=== PATIENT | male | born 1960 | race Caucasian/White ===

== ENCOUNTER 2023-04-18 10:30 | Outpatient (CLI) | payer OTHER, SELFPAY ==
[2023-04-18 18:50] LABS: Alanine Aminotransferase 27 U/L (6-50); Albumin Level 4.5 g/dL (3.5-5.1); Alkaline Phosphatase 53 U/L (38-126); Anion Gap 6 mmol/L (8-16); Aspartate Amino Transferase 38 U/L (17-59); Bilirubin,Total 0.7 mg/dL (0.2-1.3); Blood Urea Nitrogen 19 mg/dL (9-20); Calcium 9.1 mg/dL (8.4-10.2); Carbon Dioxide 31 mmol/L (22-30); Chloride 102 mmol/L (98-107); Cholesterol 186 mg/dL (0-200); Estimated Glomerular Filt Rate > 60; Glucose 96 mg/dL (65-110); HDL Direct 56 mg/dL; Potassium 4.3 mmol/L (3.4-5.0); Sodium 139 mmol/L (137-145); Triglycerides 78 mg/dL (<150)
[2023-04-18 19:01] LABS: LDL Cholesterol Direct 100 mg/dL
[2023-04-18 19:19] LABS: Prostate Specific Antigen 0.6 ng/mL (< OR = 4.0)
== END 2023-04-18 10:31 | disposition home or self-care (01) ==
LOC: ANHGOSHLAB 10:31
PROVIDERS: PCP Internal Medicine Rheumatology; Visit Provider Family Medicine
DX: E78.5 Hyperlipidemia, unspecified (principal); Z12.5 Encounter for screening for malignant neoplasm of prostate
CPT/HCPCS: 36415; 80053; 80061; 84153; G0103

== ENCOUNTER 2023-08-10 02:08 | Day surgery (SDC) | payer OTHER, SELFPAY ==
[2023-07-31 13:55] VITALS: BMI 23.9
[2023-08-10 06:23] VITALS: BP 123/81; PULSE 66; RESP 16; TEMP 35.9; O2SAT 99
[2023-08-10] MEDS: LACTATED RINGERS 1,000 ML 150 ML IV CONT (06:35)
--- NOTE | 2023-08-10 07:27 | P.PNAN_ITS ---
Anes - Initial Pre Proc Eval Procedure: Operation Date: 08/10/23 07:30 Proposed Procedures p Colonoscopy - Eloy Bahena MD Date/Time: 08/10/23 07:27 Surgeon: Eloy Bahena MD Pre Op Diagnosis: hx colon polyps Patient Data Age: 62 Gender: M Height: 1.83 m Weight: 83.3 kg Last Vital Signs Temp 96.7 F L 08/10/23 06:23 Pulse 66 08/10/23 06:23 Resp 16 08/10/23 06:23 BP 123/81 08/10/23 06:23 Pulse Ox 99 08/10/23 06:23 O2 Del Method Room Air 08/10/23 06:23 Allergies Allergy/AdvReac Type Severity Reaction Status Date / Time No Known Allergies Allergy Verified 08/10/23 06:20 Home Medications Medication Instructions Recorded Confirmed Type losartan 50 mg tablet 50 mg PO DAILY 04/18/23 08/10/23 History Patient hx anesthesia problems: other (states prolonged awakening) Family hx anesthesia problems: none Results Review: All pre-operative results and documents have been reviewed as part of the pre- operative evaluation. [facility] Past Medical History Medical History (Updated 04/19/23 @ 08:31 by Sohail Malave MD) Heart disease Paced rhythm on remediation bioanalytics consultant Social History Social History (Updated 04/18/23 @ 09:46 by Hayde Lucas MA) Smoking packs per day: 0 Smoking cigarettes per day: 0.0 Smoking status: Never smoker Second hand tobacco smoke exposure: No Alcohol intake: never Substance use: never Substance use type: does not use Lack of Transportation: No Lack of Food: Never True Current Housing: I Have Housing Concerned About Future Housing: No Difficulty Paying Gas/Electric Bills: No Difficulty Paying for Meds: No Currently Unemployed: No Education: Master's Degree or Higher Difficulty w/ Childcare or Family Care: No Living arrangements: with family Spiritual care concerns: No Anes - Eval Final PreProcedure Day of Procedure 08/10/23 07:27 Patient weight: normal Heart: regular rate and rhythm Lungs: clear to auscultation Airway: Mallampati scale class II Neurological: alert and oriented Last oral intake: >/= 8 hours ASA classification: III Emergent: no Anesthetic plan: proceed Anesthesia type and monitoring: general GIVS and standard monitoring Results Review: All pre-operative results and documents have been reviewed as part of the pre- operative evaluation. Informed Consent: The patient's anesthetic plan and its attendant risks and benefits were discussed with the patient/family/POA. Questions were solicited and answers provided to the satisfaction of the patient/family/POA.
--- NOTE | 2023-08-10 07:33 | PM.HPGS ---
History of Present Illness History of Present Illness Consent: Risks, benefits, and alternatives have been discussed and questions answered. Patient agrees to proceed with procedure. Chief complaint: hx colon polyps Narrative: Phillip Montero is a 62 year old male with colon polyp about 6-7 years ago Review of Systems Constitutional: Constitutional: Denies headache(s) and Denies weakness Eyes: Eyes: Denies blurry vision ENT: Reports Normal hearing present, Denies headache(s) and Denies neck pain Cardiovascular: Cardiovascular: Denies chest pain and Denies dyspnea Respiratory: Respiratory: Denies dyspnea Gastrointestinal: Gastrointestinal: Reports no additional gastrointestinal complaints Genitourinary: Genitourinary: Denies dysuria Musculoskeletal: Musculoskeletal: Denies neck pain Integumentary/Breasts: Skin/Breast: Denies dry skin Neurologic: Reports Normal hearing present, Denies headache(s) and Denies weakness Psychiatric: Psychiatric: Denies anxiety Endocrine: Endocrine: Denies change in body appearance Hematologic/Lymphatic: Hematologic/Lymphatic: Denies easy bleeding Allergic/Immunologic: Allergic/Immunologic: Denies urticaria PMFSH Past Medical History Medical History (Updated 04/19/23 @ 08:31 by Sohail Malave MD) Heart disease Paced rhythm on quality assurance monitor Social History Social History (Updated 04/18/23 @ 09:46 by Hayde Lucas MA) Smoking packs per day: 0 Smoking cigarettes per day: 0.0 Smoking status: Never smoker Second hand tobacco smoke exposure: No Alcohol intake: never Substance use: never Substance use type: does not use Lack of Transportation: No Lack of Food: Never True Current Housing: I Have Housing Concerned About Future Housing: No Difficulty Paying Gas/Electric Bills: No Difficulty Paying for Meds: No Currently Unemployed: No Education: Master's Degree or Higher Difficulty w/ Childcare or Family Care: No Living arrangements: with family Spiritual care concerns: No Meds Home Medications and Allergies Home Medications Medication Instructions Recorded Confirmed Type losartan 50 mg tablet 50 mg PO DAILY 04/18/23 08/10/23 History Allergies Allergy/AdvReac Type Severity Reaction Status Date / Time No Known Allergies Allergy Verified 08/10/23 06:20 Vital Signs Vital Signs - 24 hr 08/10/23 06:23 Temperature 96.7 F L Pulse Rate 66 Respiratory Rate 16 Blood Pressure 123/81 Pulse Oximetry 99 Oxygen Delivery Room Air Exam Const: General: comfortable and no acute distress HENMT: Face/Nose/Sinus: Normal nares present Eyes: General: appearance normal, both eyes and all related structures Neck: Neck: no JVD Resp: Auscultation: clear to auscultation bilaterally Cardio: Rate: regular rate Rhythm: regular rhythm GI: Inspection: non-distended GI Palp: Yes Soft to palpation Skin: General skin exam: normal color Neuro: General: gait normal Speech: normal speech Extrem: General: normal to inspection Psych: Mental Status: mental status grossly normal Assessment and Plan Assessment and plan (1) Colon cancer screening: Code(s): Z12.11 - Encounter for screening for malignant neoplasm of colon Status: Acute Assessment and Plan: colonoscopy
[2023-08-10 07:49] VITALS: BP 81/51; PULSE 57; RESP 20; O2SAT 100
[2023-08-10 07:59] VITALS: BP 92/60; PULSE 52; RESP 21; O2SAT 99
[2023-08-10 08:09] VITALS: BP 103/73; PULSE 52; RESP 16; O2SAT 99
== END 2023-08-10 08:23 | disposition home or self-care (01) ==
PROVIDERS: PCP Family Medicine; Visit Provider Internal Medicine Gastroenterology
PROC: 0DJD8ZZ Inspection of Lower Intestinal Tract, Via Natural or Artificial Opening Endoscopic (ICD-10-PCS; CPT 45378; principal; 2023-08-10 07:30)
DX: Z12.11 Encounter for screening for malignant neoplasm of colon (principal); K57.30 Diverticulosis of large intestine without perforation or abscess without bleeding; K64.8 Other hemorrhoids; I51.9 Heart disease, unspecified; Z95.0 Presence of cardiac pacemaker; Z86.010 Personal history of colon polyps
CPT/HCPCS: 45378; J2704; J7120

== ENCOUNTER 2025-01-13 15:42 | Outpatient (CLI) | payer OTHER, SELFPAY ==
--- OUTSIDE RECORDS SUMMARY | 2025-01-13 17:09 | XMS_ITS | Clinical Summary ---
Author Organization [facility] Address [address] [place] [address] Care Team Providers Care Supervisor [employer] Name Role Phone Sohail Malave MD Primary Care Provider [phone] Alexandre Cooper MD Unavailable [phone] Allergies No known active allergies Medications aspirin 81 mg enteric coated tablet Take 1 tablet (81 mg total) by mouth daily 30 tablet 11 09/04/2024 5 Active rosuvastatin (CRESTOR) 20 mg tablet Take 1 tablet (20 mg total) by mouth daily 30 tablet 11 09/04/2024 5 Active metoprolol XL (TOPROL-XL) 25 mg extended release tablet Take 1 tablet (25 mg total) by mouth daily 30 tablet 11 09/04/2024 5 Active losartan (COZAAR) 50 mg tablet Take 1 tablet (50 mg total) by mouth daily 90 tablet 3 11/19/2024 Active Active Problems Problem Noted Date Diagnosed Date Essential hypertension 05/15/2023 Assessment & Plan (07/06/2023 10:19 AM CDT): Well controlled. Continue same therapy. Continue diet and exercise. Apical variant hypertrophic cardiomyopathy 08/26 Assessment & Plan (07/06/2023 10:17 AM CDT): Stable, apical hypertrophic cardiomyopathy well compensated. I made no change in his excellent medical regimen today. I asked him to follow up with me annually, or sooner if needed. I again advised him to continue to diet and exercise regularly. Assessment & Plan (04/07/2022 9:25 AM CDT): Stable, well compensated. He has had recent lightheadedness. I recommended an echocardiogram to re-evaluate left ventricular and valvular function, and further recommendations will await these results. I made no change in his excellent medical regimen today. Tentatively, asked him to follow up with me annually, or sooner if needed, pending the results of the echocardiogram. I again advised him to continue to diet and exercise regularly. Blood pressure is high today, with no previous history of hypertension. I asked him to monitor his blood pressure carefully at home, and to report if elevated. Assessment & Plan (02/24/2021 9:39 AM CDT): Stable, well compensated and asymptomatic. I made no change in his excellent medical regimen today. I asked him to follow up with me annually, or sooner if needed. I again advised him to continue to diet and exercise regularly. Assessment & Plan (02/26/2020 9:21 AM CDT): Stable, well compensated and asymptomatic except for occasional orthostatic lightheadedness. I advised him to remain very well hydrated. Continue same therapy. Assessment & Plan (02/13/2019 9:19 AM CDT): Stable, asymptomatic. He remains extremely well compensated. Continue same therapy. Assessment & Plan (08/26/2018 5:22 PM TOWER HELPER): The patient appears to have apical hypertrophy on a recent echocardiogram. He has long been known to have deep T-wave inversions on his surface ECG. There is no evidence of obstruction, and patient has no limitation in his ability to exert himself. There is an association between the apical subtype of hypertrophic cardiomyopathy and ventricular arrhythmia. No ventricular tachycardia has been recorded on the patient's device log, and a narrow complex tachycardia that was recorded is highly unlikely to represent ventricular tachycardia. For now, we will plan on following the patient's arrhythmia burden via his pacemaker. I will also make a point of stimulating his ventricle to determine if ventricular tachycardia is inducible at the time of his EP study. Paroxysmal atrial fibrillation 08/26/2018 Assessment & Plan (07/06/2023 10:19 AM CDT): Stable, very brief PAF on device check only, with extremely low burden. Continue same therapy. Assessment & Plan (04/07/2022 9:26 AM CDT): Stable, extremely brief PAF on pacemaker check only. Continue same therapy. Assessment & Plan (02/24/2021 9:40 AM CDT): Stable, no recent PAF on pacemaker checks. Continue same therapy. Assessment & Plan (02/26/2020 9:20 AM CDT): Stable, brief PAF only noted on prior pacemaker checks, with no significant burden noted on today's pacemaker check. Continue same therapy. Assessment & Plan (02/13/2019 9:18 AM CDT): Stable, brief PAF only. His pacemaker check today will be reviewed, and further recommendations forthcoming then. Assessment & Plan (08/26/2018 5:20 PM TOWER HELPER): The patient was also recently found to have device-detected atrial fibrillation. This episode was not symptomatic and lasted only 25 min. For now, we will continue to monitor the patient's arrhythmia burden via his device. The patient has a [id number] score of 0 (annualized risk of stroke approximately 0%). The patient will continue on aspirin, and we will re-evaluate the need for anticoagulation in the future. Paroxysmal SVT (supraventricular tachycardia) Assessment & Plan (07/06/2023 10:18 AM CDT): Stable, without recurrence status post SVT ablation. Continue same therapy. Assessment & Plan (04/07/2022 9:25 AM CDT): Stable status post SVT ablation without recurrence. Continue same therapy. Assessment & Plan (02/24/2021 9:39 AM CDT): Stable, without recurrence status post SVT ablation. Continue same therapy. Assessment & Plan (02/26/2020 9:19 AM CDT): Stable status post SVT ablation without recurrence. I made no change in his excellent medical regimen today. I asked him to follow up with me annually, or sooner if needed. Assessment & Plan (02/13/2019 9:18 AM CDT): Stable, maintaining sinus rhythm status post SVT ablation. I made no change in his medical regimen today. His pacemaker check today will be reviewed, and further recommendations forthcoming then. I asked him to follow up with me annually, or sooner if needed. Assessment & Plan (08/26/2018 5:19 PM TOWER HELPER): The the patient has device-detected supraventricular tachycardia. This appears to have been associated with his episode of near-syncope. The arrhythmia as intracardiac characteristics included a 1:1 A:V relationship the, with a far field electrogram demonstrating narrow complex. The differential diagnosis includes atrial tachycardia/flutter, as well as AVNRT/AVRT. We discussed options for management, and I recommended that the patient undergo EP study with ablation of the tachycardia mechanism. I explained the risks and benefits, and the patient would like to proceed. Assessment & Plan (07/23/2018 10:36 AM CDT): Stable, but he has had recent exertional presyncope, reportedly with associated marked tachycardia. His pacemaker will be checked today, and further recommendations forthcoming then. I recommended an echocardiogram to re-evaluate left ventricular and valvular function. Further recommendations will await these results. Tentatively, I asked him to follow up with me annually, or sooner if needed, pending the results of the above studies. 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 I asked him to follow up with electrophysiology. Syncope and collapse 07/23/2018 Assessment & Plan (07/06/2023 10:18 AM CDT): Stable, without recurrence status post pacemaker. Continue same therapy. Assessment & Plan (04/07/2022 9:26 AM CDT): Stable, history of syncope likely related to SVT in the setting of hypertrophic cardiomyopathy, without recurrence status post pacemaker and SVT ablation. Continue same therapy. Assessment & Plan (02/24/2021 9:40 AM CDT): Stable, without recurrence status post SVT ablation. Continue same therapy. Assessment & Plan (02/26/2020 9:21 AM CDT): Stable, without recent episode. Continue same therapy. Assessment & Plan (02/13/2019 9:18 AM CDT): Stable, without recurrence. Continue same therapy. Assessment & Plan (07/23/2018 10:10 AM CDT): As above, he has had recurrent presyncope once associated with exertion. I recommended an echo and stress echo, and further recommendations will await these results. Sinoatrial node dysfunction 12/17/2017 Assessment & Plan (07/06/2023 10:18 AM CDT): Stable status post pacemaker. Continue follow-up in the device Clinic. Assessment & Plan (04/07/2022 9:25 AM CDT): Stable status post pacemaker. Continue follow-up in the device Clinic. Assessment & Plan (02/24/2021 9:39 AM CDT): Stable status post pacemaker. Continue follow-up in the device Clinic. Assessment & Plan (02/26/2020 9:19 AM CDT): Stable status post pacemaker. Continue follow-up in the device Clinic. Assessment & Plan (02/13/2019 9:18 AM CDT): Stable status post pacemaker. Continue follow-up in the device clinic. Assessment & Plan (07/23/2018 10:10 AM CDT): As above, his pacemaker will be checked today, and further recommendations forthcoming then. Continue follow-up in the device clinic. Assessment & Plan (12/18/2017 2:26 PM TOWER HELPER): Stable status post pacemaker with normal function. I made no change in his medical regimen today. I asked him to follow up with me annually, or sooner if needed. He will continue follow-up in the device clinic as well. Cardiac pacemaker in situ 10/01/2017 Overview (02/03/2018): Medtronic DDD Advisa MRI pacemaker implanted on 06-28-16 for SSS. Usama Palafox-Jim card Assessment & Plan (08/26/2018 5:27 PM TOWER HELPER): The patient's device was interrogated and found to be functioning appropriately. No substantial changes to programming were made. The patient is enrolled in [facility], and we will continue to follow with remote monitoring when possible, and in-office device checks when necessary. Inguinal pain 09/25/2013 Arthralgia of hip 03/27/2013 Resolved Problems Problem Noted Date Diagnosed Date Resolved Date SVT (supraventricular tachycardia) 08/22/2018 02/25/2020 Overview (08/22/2018): Added automatically from request for surgery [id number] Encounters Date Type Department Care Team Description 10/27/2024 6:15 PM TOWER HELPER Ancillary Procedure [facility] [address] [place] [id number] Cardiac pacemaker in situ (Primary Dx); SSS (sick sinus syndrome) (HCC) from Last 3 Months Surgical History Surgery Date Site/Laterality Comments INSERT / REPLACE / REMOVE PACEMAKER 10/15/2015 - 016 TONSILLECTOMY childhood Medical History Medical History Date Comments Cardiac pacemaker in situ 10/01/2017 Medtro rosemary DDD Advisa MRI pacemaker implanted on 06-28-16 for SSS. Usama Palafox SSS (sick sinus syndrome) (HCC) Paroxysmal SVT (supraventric ular tachycardia) Ventricular tachycardia (HCC) Supraventricular tachycardia Atrial fibrillation (HCC) Hypertension Hypertrophic cardiomyopathy (HCC) Family History Medical History Relation Name Comments Heart disease Mother Samara Montero Other Mother Samara Montero Pacemaker; Other Other No family histo ry of Coronary artery disease, premature; Relation Name Status Comments Mother Samara Montero Other Social History Tobacco Use Types Packs/Day Years Used Date Smoking Tobacco: Never Cigarettes Smokeless Tobacco: Never Tobacco Cessation:Counseling Given: Not Answered Alcohol Use Standard Drinks/Week Comments No 0 (1 standard drink = 0.6 oz pur e alcohol) Personal Safety Answer Date Recorded Have you ever been in or are you currently in a harmful physical or emotional relationship or is someone making you feel afraid or unsafe? Denies 09/03/2024 Sex and Gender Information Value Date Recorded Sex Assigned at Not on file Legal Sex Male 5:53 AM TOWER HELPER Gender Identity Not on file Sexual Orientation Not on file Obstetrics History Last Filed Vital Signs Vital Sign Reading Time Taken Comments Blood Pressure 123/76 09/03/2024 11:21 AM TOWER HELPER patient had no complaints. patient was able to ambulate Pulse 51 09/03/2024 11:21 AM TOWER HELPER Temperature 35.2 C (95.4 F) 09/16/2018 7:22 AM TOWER HELPER Respiratory Rate 14 09/03/2024 10:4 5 AM TOWER HELPER Oxygen Saturation 99% 09/03/2024 10: 45 AM TOWER HELPER Inhaled Oxygen Concentration - - Weight 83 kg (183 lb) 08/07/2024 8:11 AM CDT Height 182.9 cm (6') 08/07/2024 8:11 AM CDT Body Mass Index 24.82 08/07/2024 8:11 AM CDT Plan of Treatment Health Maintenance Due Date Last Done Comments Colon Cancer Screening-Colonoscopy 1960 Depression Screening 1960 Hepatitis C Screening 1960 Prostate Cancer Screening-PSA 1960 DTaP/Tdap/Td Vaccine (1 - Tdap) 1971 Hepatitis B Screening 1978 Regular Well Visit/Exam 18-64 1978 Zoster Vaccine (1 of 2) 2010 Influenza Vaccine (#1) 2024 Pneumococcal vaccine <65 Aged Out No longer eligible based on patient's age to complete this topic Medical Devices Implanted Type Area Upper And Bottom Lacer Hand Device Identifier Shelf Expiration Date Model / Serial / Lot Pacemaker Implanted:Clovis Orellana MD (Quantity not on file) Pacemaker Left: Chest Procedures Procedure Name Priority Date/Time Associated Diagnosis Comments DEVICE CHECK - REMOTE Routine 10/27/2024 11:28 AM TOWER HELPER SSS (sick sinus syndrome) (HCC) from Last 3 Months Results * DEVICE CHECK - REMOTE (10/27/2024 11:28 AM TOWER HELPER) Anatomical Region Laterality Modality Other Narrative 11/03/2024 7:04 AM TOWER HELPER Table formatting from the original result was not included. PM CHECK (REMOTE) Patient ID: Phillip Montero is a 63 y.o. male This patient received a Medtronic Pacemaker. They had a routine remote transmission on 10/27/2024. Device implant indications: SSS Interrogation of the patient's device demonstrates the following: Presenting EGM: A sense V sense @ 60 bpm Original Device Settings Right Atrium Right Ventricle Sensitivity (mV) 0.3 mV 1.2 mV Pacing Outputs 2.0 V @ 0.4 ms 1.5 V @ 0.4 ms Testing Measurements Right Atrium Right Ventricle Sensitivity (mV) 4.5 mV 14.3 mV Impedence (Ohms) 380 ohms 437 ohms Pace Threshold Off V @ ms Off V @ ms Pacing % 14 % 5.6 % Battery Status: 3 years to GILDA Episodes last 90 days/Comments: AF Lincoln 0 % No new ventricular events. NORMAL DEVICE FUNCTION PROGRAMMED MEDICATIONS: Anti-coagulant(s): Aspirin 81 mg Anti-arrhythmic(s): Toprol-XL 25 mg daily PLAN: 1) normal Medtronic Pacemaker evaluation 2) Medtronic remote transmission scheduled in 3 months. 3) Programming appropriate for device measurements Sandra Mccarthy RN us Clovis Forrester MD [facility] PRO CEDURES Final Result from Last 3 Months Insurance [employer] Care Teams Supervisor [employer] Relationship Specialty Start Date End Date Sohail Malave MD [address] [place] [address] [address] [place] [address] PCP - General Family Medicine 07/06/23 Alexandre Cooper MD [address] [place] [address] Lace M[facility] Cardiology 06/26/24
--- OUTSIDE RECORDS SUMMARY | 2025-01-13 17:09 | XMS_ITS | Encounter Summary ---
Author Organization [facility] Address 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
--- OUTSIDE RECORDS SUMMARY | 2025-01-13 17:09 | XMS_ITS | Clinical Summary ---
Author Organization [facility] Address [address] 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
--- OUTSIDE RECORDS SUMMARY | 2025-01-13 17:09 | XMS_ITS | Referral Summary ---
Author Organization [facility] Address [address] [place] [address] Care Team Providers Care Screedman Name Role Phone Sohail Malave MD Primary Care Provider [phone] Alexandre Cooper MD Unavailable [phone] Encounters Date Type Department Care Team Description 10/27/2024 6:15 PM TOWEL SEWER Ancillary Procedure Arrhythmia Center [address] [facility] [address] [place] [id number] Cardiac pacemaker in situ (Primary Dx); SSS (sick sinus syndrome) (HCC) from Last 3 Months Allergies No known active allergies Medications aspirin 81 mg enteric coated tablet Take 1 tablet (81 mg total) by mouth daily 30 tablet 09/04/2024 5 Active rosuvastatin (CRESTOR) 20 mg tablet Take 1 tablet (20 mg total) by mouth daily 30 tablet 09/04/2024 5 Active metoprolol XL (TOPROL-XL) 25 mg extended release tablet Take 1 tablet (25 mg total) by mouth daily 30 tablet 09/04/2024 5 Active losartan (COZAAR) 50 mg [...] therapy. 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 Assessment & Plan (08/26/2018 5:20 PM TOWEL SEWER): The patient was also recently found to have device-detected atrial fibrillation. This episode was not symptomatic and lasted only 25 min. For now, we will continue to monitor the patient's arrhythmia burden via his device. The patient has a [id number] score of 0 (annualized risk of stroke [...] needed. Assessment & Plan (08/26/2018 5:19 PM TOWEL SEWER): The the patient has device-detected supraventricular tachycardia. [...] clinic. Assessment & Plan (12/18/2017 2:26 PM TOWEL SEWER): Stable status post pacemaker with normal function. I made no change in his medical regimen today. I asked him to follow up with me annually, or sooner if needed. He will continue follow-up in the device clinic as well. Cardiac pacemaker in situ 10/01/2017 Overview (02/03/2018): Medtronic DDD Advisa MRI pacemaker implanted on 06-28-16 for SSS. Usama Mckeon card Assessment & Plan (08/26/2018 5:27 PM TOWEL SEWER): The patient's device was interrogated and found [...] (08/22/2018): Added automatically from request for surgery [id number] Social History Tobacco Use Types Packs/Day Years [...] on file Legal Sex Male 5:53 AM TOWEL SEWER Gender Identity Not on file Sexual Orientation Not on file Last Filed Vital Signs Vital Sign Reading Time Taken Comments Blood Pressure 123/76 09/03/2024 11:21 AM TOWEL SEWER patient had no complaints. patient was able to ambulate Pulse 51 09/03/2024 11:21 AM TOWEL SEWER Temperature 35.2 C (95.4 F) 09/16/2018 7:22 AM TOWEL SEWER Respiratory Rate 14 09/03/2024 10:4 5 AM TOWEL SEWER Oxygen Saturation 99% 09/03/2024 10: 45 AM TOWEL SEWER Inhaled Oxygen Concentration - - Weight 83 kg (183 lb) 08/07/2024 8:11 AM CDT Height 182.9 cm (6') 08/07/2024 8:11 AM CDT Body Mass Index 24.82 08/07/2024 8:11 AM CDT Plan of Treatment Not on file Medical Devices Implanted Type Area Junior Analyst Device Identifier Shelf Expiration Date Model / Serial / Lot Pacemaker Implanted:Clovis Orellana MD (Quantity not on file) Pacemaker Left: Chest Procedures Procedure Name Priority Date/Time Associated Diagnosis Comments DEVICE CHECK - REMOTE Routine 10/27/2024 11:28 AM TOWEL SEWER SSS (sick sinus syndrome) (HCC) from Last 3 Months Results * DEVICE CHECK - REMOTE (10/27/2024 11:28 AM TOWEL SEWER) Anatomical Region Laterality Modality Other Narrative 11/03/2024 7:04 AM TOWEL SEWER Table formatting from the original result was [...] to GILDA Episodes last 90 days/Comments: AF [place] 0 % No new ventricular events. NORMAL DEVICE FUNCTION PROGRAMMED MEDICATIONS: Anti-coagulant(s): Aspirin 81 mg Anti-arrhythmic(s): Toprol-XL 25 mg daily PLAN: 1) normal Medtronic Pacemaker evaluation 2) Medtronic remote transmission scheduled in 3 months. 3) Programming appropriate for device measurements Sandra Mccarthy RN us Clovis Forrester MD [facility] CEDURES Final Result from Last 3 Months Insurance [employer] Care Teams Screedman Relationship Specialty Start Date End Date Sohail Malave MD [address] [facility] [address] [place] [address] PCP - General Family Medicine 07/06/23 Alexandre Cooper MD [address] [place] [address] Contact Center Professional Cardiology 06/26/24
--- OUTSIDE RECORDS SUMMARY | 2025-01-13 17:09 | XMS_ITS | Encounter Summary ---
Author Organization [facility] Address [address] [address] Care Team Providers Care Assistant Foreman Name Role Phone So Bird MD Primary Care Provider [phone] Sohail Malave MD Primary Care Provider [phone] Alexandre Cooper MD Unavailable [phone] Encounter Details Date Type Department Care Team (Late st Contact Info) Description 11/13/2016 Orders Only Arrhythmia Center ProviderLeslie MD [address] [place] [id number] Social History Tobacco Use Types Packs/Day Years Used Date Smoking Tobacco: Never Alcohol Use Standard Drinks/Week Comments No 0 (1 standard drink = 0.6 oz pur e alcohol) Sex and Gender Information Value Date Recorded Sex Assigned at Not on file 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 us Historical Provider [facility] [place] Final Result documented in this encounter Visit Diagnoses Not on filedocumented in this encounter Care Teams Assistant Foreman Relationship Specialty Start Date End Date So Bird MD [address] [place] [address] PCP - General 08/04/16 07/05/23 Sohail Malave MD [address] [facility] [address] [place] [address] PCP - General Family Medicine 07/06/23 Alexandre Cooper MD [address] [place] [address] Tool Setter Cardiology 06/26/24 documented as of this encounter
== END 2025-01-13 15:43 | disposition home or self-care (01) ==
LOC: CHSLAB 15:44
PROVIDERS: PCP Family Medicine; Visit Provider Specialist
DX: L82.1 Other seborrheic keratosis (principal)
CPT/HCPCS: 88305